=== PATIENT | female | born 1935 | race Caucasian/White ===

== ENCOUNTER 2018-11-03 20:05 | Emergency (ER) | payer MEDICARE, BC, OTHER ==
[2018-11-03 21:26] LABS: ADD MAN DIFF? NO
[2018-11-03 21:29] LABS: WHITE BLOOD COUNT 5.2 10^3/ul (4.8-10.8)
[2018-11-03 21:29] LABS: BASOPHILS % 0.4 % (0.0-2.0); EOSINOPHILS # 0.1 10^3/ul (0.0-0.5); EOSINOPHILS % 1.9 % (0.0-7.0); LYMPHOCYTES # 1.7 10^3/ul (0.8-2.9); LYMPHOCYTES % 33.3 % (15.0-51.0); MEAN CORPUSCULAR HEMOGLOBIN 30.9 pg (29.0-33.0); MEAN CORPUSCULAR HGB CONC 33.3 g/dl (32.0-37.0); MEAN CORPUSCULAR VOLUME 92.8 fl (82.0-101.0); MONOCYTE # 0.4 10^3/ul (0.3-0.9); MONOCYTES % 8.3 % (0.0-11.0); NEUTROPHIL # 2.9 10^3/ul (1.6-7.5); NEUTROPHILS % 55.7 % (39.0-77.0); PLATELET COUNT 231 10^3/UL (140-415); RED BLOOD COUNT 3.88 10^6/ul (4.20-5.40); RED CELL DISTRIBUTION WIDTH 12.7 % (11.5-14.5)
[2018-11-03] MEDS: ALPRAZOLAM 0.25 MG TAB PO (21:34)
[2018-11-03] MEDS: NIFEdipine (XL) 30 MG TAB PO (21:34)
[2018-11-03 21:46] LABS: INR 0.98; PARTIAL THROMBOPLASTIN TIME 26.9 Sec (23.0-35.0); PROTIME 13.1 Sec (11.9-14.9)
[2018-11-03 21:59] LABS: ANION GAP 14 (5-13); BLOOD UREA NITROGEN 22 mg/dl (7-20); CALCIUM 9.9 mg/dl (8.4-10.2); CARBON DIOXIDE 25 mmol/L (21-31); CHLORIDE 99 mmol/L (97-110); CREATININE 0.99 mg/dl (0.44-1.00); GLUCOSE 150 mg/dl (70-220); POTASSIUM 4.3 mmol/L (3.5-5.1); SODIUM 138 mmol/L (135-144)
== END 2018-11-03 23:36 | disposition home or self-care (01) ==
LOC: E/R 23:36
DX: I16.0 Hypertensive urgency (principal); F41.9 Anxiety disorder, unspecified; E11.9 Type 2 diabetes mellitus without complications; R51 Headache; Z79.82 Long term (current) use of aspirin; Z79.84 Long term (current) use of oral hypoglycemic drugs
CPT/HCPCS: 36415; 70450; 80048; 85025; 85610; 85730; 99284-25